=== PATIENT | male | born 1945 | race Caucasian/White ===

== ENCOUNTER 2018-10-01 19:41 | Emergency (ER) | payer OTHER ==
[~2018-10-01] VITALS: Ht 175.3 cm; Wt 73.2 kg
[2018-10-01] MEDS ORDERED: ALBU8.5H8 IH (20:10)
[2018-10-01] MEDS ORDERED: ATOR40TA28 PO (20:10)
[2018-10-01] MEDS ORDERED: FURO20 PO (20:10)
[2018-10-01] MEDS ORDERED: LISI-661 PO (20:10)
[2018-10-01] MEDS ORDERED: METO25 PO (20:10)
[2018-10-01] MEDS ORDERED: CARV3 PO (20:10)
[2018-10-01] MEDS ORDERED: IPRA3AMP24 NEB (20:10)
[2018-10-01 20:36] LABS: BASOPHILS % (AUTO) 0.8 % (0.0-2.0); EOSINOPHILS % (AUTO) 3.3 % (1.0-6.0); HEMATOCRIT 40.1 % (41-53); HEMOGLOBIN 12.8 g/dL (13.5-17.5); LYMPHOCYTES # (AUTO) 1.7 K/uL (1.0-4.8); LYMPHOCYTES % (AUTO) 26.5 % (22.0-44.0); MEAN CORPUSCULAR HEMOGLOBIN 29.7 pg (26.0-34.0); MEAN CORPUSCULAR HGB CONC 31.9 G/dL (31.0-37.0); MEAN CORPUSCULAR VOLUME 93 fL (80-100); MONOCYTES # (AUTO) 0.5 K/uL (0.1-1.0); NEUTROPHILS % (AUTO) 61.4 % (40.0-70.0); PLATELET COUNT (AUTO) 118 K/uL (150-450); RED CELL DISTRIBUTION WIDTH 15.4 % (11.5-14.5)
[2018-10-01 20:46] LABS: ANION GAP 7 mmol/L (8-16); CALCIUM, TOTAL 9.2 mg/dL (8.8-10.5); CARBON DIOXIDE 34 mmol/L (22-29); CHLORIDE 103 mmol/L (98-107); CREATININE 1.14 mg/dL (0.60-1.30); GLUCOSE,RANDOM 102 mg/dL (70-110); POTASSIUM 3.9 mmol/L (3.5-5.1); SODIUM SERUM 144 mmol/L (136-145); UREA NITROGEN, BLOOD 26 mg/dL (7-18)
[2018-10-01 20:49] LABS: GLOMERULAR FILTR. RATE CALC > 60 mL/min (>60)
[2018-10-01 20:52] LABS: B-TYPE NATRIURETIC PEPTIDE 52 pg/mL (0-100)
[2018-10-01 21:10] LABS: ALANINE AMINOTRANSFERASE 19 U/L (12-78); ALBUMIN 3.6 g/dL (3.4-5.0); ALKALINE PHOSPHATASE 92 U/L (46-116); ASPARTATE AMINOTRANSFERASE 17 U/L (15-37); BILIRUBIN,TOTAL 0.4 mg/dL (0.1-1.0); CREATINE KINASE, TOTAL ONLY 83 U/L (39-308); LIPASE 106 U/L (73-393); TOTAL PROTEIN, SERUM 6.7 g/dL (6.4-8.2)
[2018-10-01] MEDS ORDERED: IPRATROPIUM BROMIDE 0.5 MG/2.5 ML NEB SOLUTION NEB ONE (21:45)
[2018-10-01] MEDS ORDERED: ALBUTEROL SULFATE 2.5 MG/0.5 ML NEB SOLUTION NEB ONE (21:45)
[2018-10-01] MEDS ORDERED: IOVERSOL 350 MG/ML 100 ML VIAL ONE (21:59)
[2018-10-01] MEDS ORDERED: SODIUM CHLORIDE 0.9% 100 ML ONE (21:59)
[2018-10-01 23:30] VITALS: BP 110/67
[2018-10-01] MEDS ORDERED: AZITHROMYCIN 250 MG TABLET PO ONE (23:45)
[2018-10-01] MEDS ORDERED: KETOROLAC TROMETHAMINE 30 MG/ML VIAL IVP ONE (23:45)
== END 2018-10-02 00:15 | disposition home or self-care (01) ==
LOC: EMS 19:51
DX: K59.00 Constipation, unspecified (principal); J18.9 Pneumonia, unspecified organism; J44.9 Chronic obstructive pulmonary disease, unspecified; Z79.899 Other long term (current) drug therapy; Z88.0 Allergy status to penicillin; Z88.5 Allergy status to narcotic agent
CPT/HCPCS: 71045; 74177; 80053; 82550; 83690; 83880; 84484; 85025; 93005; 94640; 96374; 99285; J1885; J7050; Q9967

== ENCOUNTER 2019-07-22 02:46 | Emergency (ER) | payer MEDICARE, OTHER ==
[~2019-07-22] VITALS: Ht 165.1 cm; Wt 72.7 kg
[~2019-07-22 02:46] MED LIST: ALBU8.5H8 IH; ATOR40TA28 PO; CARV3 PO; FURO20 PO; IPRA3AMP24 NEB; LISI-661 PO; METO25 PO
[2019-07-22] MEDS ORDERED: ONDANSETRON HCL 4 MG/2 ML VIAL ONE (03:10)
[2019-07-22] MEDS ORDERED: ONDANSETRON HCL 4 MG/2 ML VIAL IM ONE (03:15)
[2019-07-22 06:14] VITALS: BP 106/56
== END 2019-07-22 07:17 | disposition home or self-care (01) ==
LOC: EMS 02:46
DX: S00.83XA Contusion of other part of head, initial encounter (principal); W07.XXXA Fall from chair, initial encounter; Y93.89 Activity, other specified; Y92.89 Other specified places as the place of occurrence of the external cause; Y99.8 Other external cause status
CPT/HCPCS: 70450; 72125; 96372; 99285; J2405